=== PATIENT | male | born 1975 | race Caucasian/White ===

== ENCOUNTER 2017-05-15 11:18 | Emergency (ER) | payer OTHER ==
[~2017-05-15] VITALS: Ht 177.8 cm; Wt 78.4 kg
[~2017-05-15 11:18] MED LIST: Augmentin PO; BENTYL20 MG PO; CATAPRES0.1 MG PO; Diflucan PO; Ecotrin PO; HUMIRA40 MG/0.8 SC; PERCOCET 5/31 TABLET PO; TRAZODONE HCL50 MG PO; Vicodin,Norco 5/325 PO
[2017-05-15 12:10] LABS: HEMATOCRIT 51.1 % (38.0-50.0); MCH 27.9 PG (29.0-34.0); MCHC 33.3 G/DL (30.0-36.0); MCV 83.9 FL (86-99); MEAN PLAT.VOLUME 10.8 uM^3 (9.0-12.4); PLATELET COUNT 347 K/uL (156-360); RBC DIS.WIDTH-CV 14.4 % (11.8-14.6); RBC DIS.WIDTH-SD 43.4 % (39-53); RED BLOOD COUNT 6.09 M/uL (4.00-5.50); WHITE BLOOD COUNT 16.9 K/uL (4.1-10.2)
[2017-05-15 12:31] LABS: CHLORIDE 106 mEq/L (99-109); SODIUM 141 mEq/L (136-147)
[2017-05-15 12:33] LABS: GLUCOSE 102 mg/dL (70-99)
[2017-05-15 12:34] LABS: ANION GAP 14 MEQ/L (2-14)
[2017-05-15 12:35] LABS: TOTAL BILIRUBIN 0.4 mg/dL (0.0-1.0)
[2017-05-15 12:36] LABS: ALKALINE PHOSPHATASE 119 IU/L (3-129)
[2017-05-15 12:37] LABS: GFR ESTIMATE (CALCULATED) > 59 mL/min/
[2017-05-15 12:38] LABS: UREA NITROGEN (BUN) 21 mg/dL (9-23)
[2017-05-15 13:34] LABS: ADD MIUA? YES; BILIRUBIN MODERATE; BLOOD MODERATE; COLOR AMBER ((YELLOW)); GLUCOSE (STRIP) NEGATIVE; KETONES NEGATIVE; LEUKOCYTES NEGATIVE; NITRITE NEGATIVE; PROTEIN (STRIP) 100; SPECIFIC GRAVITY 1.042 (1.000-1.030); UROBILINOGEN 0.2 MG/DL (0.2-1.0)
[2017-05-15 13:43] LABS: BACTERIA NONE SEEN /HPF; EPITHELIAL CELLS RARE /HPF; MUCUS 2+ /LPF; RED BLOOD CELLS 15-20 /HPF (0-5); UCUL ADDED? NO; WHITE BLOOD CELLS 0-5 /HPF (0-5)
[2017-05-15 14:05] LABS: ICTOTEST NEGATIVE
[2017-05-15] MEDS ORDERED: FLAGYL500 MG PO (16:36)
[2017-05-15 17:56] VITALS: BP 122/88
== END 2017-05-15 18:04 | disposition home or self-care (01) ==
LOC: EME 11:18
DX: K52.9 Noninfective gastroenteritis and colitis, unspecified (principal); E86.0 Dehydration; K50.90 Crohn's disease, unspecified, without complications; F17.200 Nicotine dependence, unspecified, uncomplicated; Z90.49 Acquired absence of other specified parts of digestive tract
CPT/HCPCS: 74177; 80053; 81003; 83605; 85027; 87040; 99281; 99285; J1885; J2405; J3010; J7040